=== PATIENT | female | born 1940 | race Caucasian/White ===

== ENCOUNTER → 2016-11-23 | Outpatient (CLI) | payer MEDICARE ==
[2016-11-23 15:08] VITALS: BP 116/71
--- NOTE | 2016-11-23 15:08 | Urgent Care T Sheet Gen (E) ---
Intake General Temperature (Fahrenheit): 98.9 Pulse: 69 Blood Pressure Systolic: 116 Blood Pressure Diastolic: 71 Respirations: 18 SPO2: 96 Description of Symptoms Patient presents requesting a bandage change to the L foot. Last week, the patient had bilateral hammer toe repairs. States she was bathing and was using the bags which she was given, however water got on the L foot bandage. States the bandages are soaked and she wonders if we could change them. She isn't scheduled to see her surgeon for another week and she doesn't want to drive to [place] to have them do it. She is in town staying with her sister during her recovery. Respiratory Constitutional Symptoms: No syptoms reported Skin: Other (surgical incisions on bilateral feet) All Other Systems Reviewed Remaining Systems: All other systems reviewed with negative findings Physical Exam Physical Exam General Appearance: WD/WN No apparent distress Skin Exam: Other (sugical incision is noted along the plantar aspect of the L 4th toe. 2 sutures are placed and the incision appears to be healing well without obvious signs of infection) Departure Urgent Care Impression Impression: Primary Impression: Encounter for wound care Departure Disposition: 01 HOME OR SELF-CARE Condition: Stable Additional Instructions: I replaced the patient's wet bandages with dry ones. Her incision looks great and shows no signs of infection Since the patient is in town staying with her sister, she doesn't have her insurance information on her. She did pay the $91 self-pay fee. Instructed the patient to call the hospital as soon as she gets home and give them her insurance information so we can file it through them and refund her $91 F/U with surgeon as scheduled Patient understands DC instructions. All questions were answered. End of report . CHINA DÍAZ Nov 23, 2016 15:08
== END ==
LOC: MHUC 14:10
PROVIDERS: ATTEND Physician Assistant
DX: Z48.00 Encounter for change or removal of nonsurgical wound dressing (principal)
CPT/HCPCS: 99212